=== PATIENT | female | born 1965 | race Caucasian/White ===

== ENCOUNTER 2017-11-29 09:55 | Emergency (ER) | payer MEDICAID, OTHER ==
[2017-11-29 10:01] VITALS: BP 140/73
--- NOTE | 2017-11-29 10:57 | ED Physician Documentation ---
PD HPI LOWER EXT INJURY - Stated complaint Stated Complaint: GLF - Chief complaint Chief Complaint: Ext Problem - History obtained from History obtained from: Patient, Family - History of Present Illness PD HPI LOW EXT INJURY LOCATION: Left, Knee, Ankle Type of injury: Fall Where injury occurred: Home Timing - onset: Last night Timing - duration: Days (1) Timing - details: Abrupt onset, Still present Improved by: Rest, Ice, Immobilization Worsened by: Moving, Palpating Associated symptoms: Swelling Contributing factors: No: Anticoagulated Similar symptoms before: Diagnosis (meniscus injury to the right knee) Recently seen: Not recently seen - Additional information Additional information: 52-year-old female was going down 5 wooden steps with her hand on the railing when the railing gave way and she fell. She fell with her foot underneath her body and had a force applied lateral to the left knee. She has some swelling and tenderness of the left knee medially and she has some swelling of the ankle over the lateral malleolus. She was able to walk right after this happened this morning she is barely able to get around with a walker. Review of Systems Constitutional: denies: Fever Ears: denies: Ear pain Nose: denies: Congestion Throat: denies: Sore throat Cardiac: denies: Chest pain / pressure Respiratory: reports: Cough. 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 HEENT: Other - Present Medications Home Medications: Ambulatory Orders Medication Instructions Recorded Confirmed Cholecalciferol (Vitamin D3) 5,000 unit PO DAILY 01/10/16 11/29/17 [Vitamin D] Metformin HCl 1,000 mg PO BIDWM 01/10/16 11/29/17 Rivaroxaban [Xarelto] 20 mg PO DAILYWM 01/10/16 11/29/17 Tretinoin/Emollient Base 60 gm TP DAILY 01/10/16 11/29/17 [Tretinoin 0.05% Emollient Crm] Varenicline Tartrate [Chantix] 1 each PO DAILY 01/10/16 11/29/17 Venlafaxine HCl [Effexor Xr] 150 mg PO DAILY 01/10/16 11/29/17 Cinnamon 500 mg PO BID 06/20/16 11/29/17 Glucosam/Chond/Hyalu/Cf Borate 1 each PO DAILY 06/20/16 11/29/17 [Move Free Joint Health Tablet] Morgan-3S/Dha/Epa/Fish Oil [Fish 1 each PO DAILY 06/20/16 11/29/17 Oil 1,200 mg Softgel] oxyCODONE/ACET 5/325 [Percocet 5 1 each PO Q4-6H PRN #20 tablet 11/29/17 mg/325 mg] - Allergies Allergies/Adverse Reactions: Allergies Allergy/AdvReac Type Severity Reaction Status Date / Time venom-honey bee Allergy Severe Anaphylaxis Verified 11/29/17 10:02 [bee venom (honey bee)] secobarbital sodium * Allergy Unknown Verified 11/29/17 10:02 [From [place]] aspirin AdvReac Intermediate Emesis Verified 11/29/17 10:02 - Social History Does the pt smoke?: No Smoking Status: Never smoker Does the pt drink ETOH?: Yes ETOH Use: Beer Does the pt have substance abuse?: Yes Substance Use and Type: Marijuana - Immunizations Immunizations are current?: Yes - POLST Patient has POLST: No PD ED PE NORMAL - Vitals Vital signs reviewed: Yes (Hypertensive mild) - General General: Alert and oriented X 3, No acute distress, Well developed/nourished - HEENT HEENT: Atraumatic, PERRL, EOMI - Respiratory Respiratory: No respiratory distress - Derm Derm: Normal color, Warm and dry, No rash - Extremities Extremities: Other (There is tenderness to the lateral malleolus of the left ankle with swelling associated. There is no tenderness over the fifth proximal and there is no tenderness over the heel. Distal neurovascular components are intact. There is tenderness over the medial and lateral joint line of the left knee there is no ligamentous laxity to anterior drawer there is some laxity to valgus forces applied.) Results - Vitals Vitals: Vital Signs - 24 hr 11/29/17 09:57 Temperature 36.1 C L Heart Rate 93 Respiratory 16 Rate Blood Pressure 140/73 H O2 Saturation 98 - Rads (name of study) ankle Radiology: Prelim report reviewed (Impression: Oblique nondisplaced fracture distal metaphyseal region of the fibula. Associated moderate overlying soft tissue swelling. Incidental note made of small plantar and Achilles heel spurs. ), EMP read indepedently, See rad report knee Radiology: Prelim report reviewed (Impression: Large effusion in the suprapatellar bursa with moderate medial soft tissue swelling. No underlying acute bone or joint abnormality. Moderate hypertrophic changes without joint space narrowing or subluxation.), EMP read indepedently (On my read there is a nondisplaced proximal fibular fracture), See rad report tib/fib Radiology: Prelim report reviewed (Impression: 1. Oblique minimally displaced fractures of the proximal and distal fibula.), EMP read indepedently, See rad report PD MEDICAL DECISION MAKING - ED course Complexity details: reviewed old records, reviewed results, re-evaluated patient , considered differential, d/w patient, d/w family ED course: 52-year-old female with a fall down some steps has fracture of the proximal and distal fibula without displacement and she also appears to have some ligamentous injury to the medial collateral ligament. She is placed into a knee immobilizer and a ankle stirrup. I have asked patient to follow-up with orthopedics as I suspect this injury will require some specific form of treatment. Departure - Departure Disposition: 01 Home, Self Care Clinical Impression: Fibula upper end fracture Qualifiers: Encounter type: initial encounter Fracture type: closed Fracture morphology: unspecified fracture morphology Laterality: left Qualified Code(s): S82.832A - Other fracture of upper and lower end of left fibula, initial encounter for closed fracture Fracture of fibula, distal, closed Qualifiers: Encounter type: initial encounter Fracture morphology: unspecified fracture morphology Laterality: left Qualified Code(s): S82.832A - Other fracture of upper and lower end of left fibula, initial encounter for closed fracture Condition: Stable Instructions: ED Fx Lower Ext Follow-Up: Isabel St DO [Primary Care Provider] - [facility] [Provider Group] Prescriptions: oxyCODONE/ACET 5/325 [Percocet 5 mg/325 mg] 1 each PO Q4-6H PRN #20 tablet PRN Reason: Pain Discharge Date/Time: 11/29/17 14:29
--- NOTE | 2017-11-29 11:44 | XRAY Preliminary Report ---
Exam: XR KNEE 4 VIEW LT IMPRESSION: Large effusion in the suprapatellar bursa with moderate medial soft tissue swelling. No u nderlying acute bone or joint abnormality. Moderate hypertrophic changes without joint space narrowing or subluxation. [facility] SITE ID: [id number]
[2017-11-29] MEDS ORDERED: HYDROcod/ACETAM 5/325 MG TABLET PO STA (11:47)
--- NOTE | 2017-11-29 11:47 | XRAY Preliminary Report ---
Exam: XR ANKLE 3 VIEW LT IMPRESSION: Oblique nondisplaced fracture distal metadiaphyseal region of the fibula. Associated mode rate overlying soft tissue swelling. Incidental note made of small plantar and Achilles heel spurs. [facility] SITE ID: [id number]
--- NOTE | 2017-11-29 11:47 | XRAY Report ---
EXAM: LEFT KNEE RADIOGRAPHY, 4 VIEWS EXAM DATE: 11/29/2017 11:30 AM. CLINICAL HISTORY: 52-year-old female with persistent left medial knee pain one day post fall. COMPARISON: None. TECHNIQUE: Frontal, lateral and both oblique views. FINDINGS: Bones: Moderate hypertrophic spurring of the tibial spines, patella, femoral condyles and margins of the tibial plateau. No fractures or bone lesions. Joints: Joint space is well-maintained. Large effusion in the suprapatellar bursa. Soft Tissues: Moderate medial soft tissue swelling. IMPRESSION: Large effusion in the suprapatellar bursa with moderate medial soft tissue swelling. No u nderlying acute bone or joint abnormality. Moderate hypertrophic changes without joint space narrowing or subluxation. [facility] Referring Provider Line: [phone] SITE ID: [id number]
--- NOTE | 2017-11-29 11:58 | XRAY Report ---
EXAM: LEFT ANKLE RADIOGRAPHY, THREE VIEWS EXAM DATE: 11/29/2017 10:56 AM. CLINICAL HISTORY: 52-year-old female post fall yesterday with persistent lateral ankle pain and pain up the fibula. COMPARISON: None. TECHNIQUE: Frontal, lateral and oblique views. FINDINGS: Bones: Oblique nondisplaced fracture distal metadiaphyseal region of the fibula. Osseous structures o therwise unremarkable for age. Small plantar and Achilles' heel spurs incidentally noted. Joints: Normal. No effusion. No subluxations. The ankle mortise is normally aligned. Soft Tissues: Moderate soft tissue swelling about the ankle, more prominent laterally. No soft tissue gas or foreign body. IMPRESSION: Oblique nondisplaced fracture distal metadiaphyseal region of the fibula. Associated mode rate overlying soft tissue swelling. Incidental note made of small plantar and Achilles' heel spurs. [facility] Referring Provider Line: [phone] SITE ID: [id number]
--- NOTE | 2017-11-29 13:59 | XRAY Preliminary Report ---
Exam: XR TIB/FIB LT IMPRESSION: 1. Oblique minimally displaced fractures of the proximal and distal fibula. [facility] SITE ID: [id number]
--- NOTE | 2017-11-29 13:59 | XRAY Report ---
EXAM: LEFT TIBIA/FIBULA RADIOGRAPHY EXAM DATE: 11/29/2017 01:36 PM. CLINICAL HISTORY: Fracture of prox and distal fib. COMPARISON: None. TECHNIQUE: 2 views. FINDINGS: Bones: Minimally displaced oblique fractures of the proximal fibular metaphysis and distal fibular di aphysis seen. Joints: The visualized knee and ankle joints are normal. No effusions. Soft Tissues: Soft tissue swelling noted in the proximal calf and at the ankle. IMPRESSION: 1. Oblique minimally displaced fractures of the proximal and distal fibula. [facility] Referring Provider Line: [phone] SITE ID: [id number]
== END 2017-11-29 14:29 | disposition home or self-care (01) ==
LOC: ED 09:55
DX: S82.832A Other fracture of upper and lower end of left fibula, initial encounter for closed fracture (principal); W10.9XXA Fall (on) (from) unspecified stairs and steps, initial encounter; E11.9 Type 2 diabetes mellitus without complications; Z79.84 Long term (current) use of oral hypoglycemic drugs; Z86.718 Personal history of other venous thrombosis and embolism
CPT/HCPCS: 29530; 73564; 73590; 73610; 99283; 99284; A9270